=== PATIENT | female | born 1970 | race Caucasian/White ===

== ENCOUNTER 2020-08-15 02:05 | Outpatient (CLI) | payer OTHER, SELFPAY ==
[2020-08-15 17:59] LABS: SARS-CoV-2 RNA PCR Negative
== END 2020-08-15 02:06 | disposition home or self-care (01) ==
LOC: ANHCOVIDDT 02:06
PROVIDERS: PCP Family Medicine; Visit Provider Internal Medicine Critical Care Medicine
DX: Z01.812 Encounter for preprocedural laboratory examination (principal); Z20.828 Contact with and (suspected) exposure to other viral communicable diseases
CPT/HCPCS: 87635; C9803; U0003

== ENCOUNTER 2020-08-18 09:25 | Outpatient (CLI) | payer OTHER, SELFPAY ==
--- NOTE | 2020-09-01 22:05 | SLEEP_ITS ---
CPAP TITRATION DATE OF STUDY: 08/18/2020 ORDERING PHYSICIAN: Snehal Kong M.D. REASON FOR THIS STUDY: Severe obstructive sleep apnea on a home sleep test. HISTORY: This patient is a 49-year-old female, 66 inches tall, weighing 194 pounds with a body mass index of 31.3. Neck circumference is 15 inches. On June 21, 2020, she had an [facility] home sleep test with an AHI of 42. The majority of the events 52% or 58 apneas were obstructive and 42% or 47 apneas were central. She presented to the sleep lab for a titration. The lowest saturation on the home sleep test was 88%, there was snoring noted, but no time was spent below 88%. Her sleep-related complaints include waking up feeling tired, even after 10 hours of sleep. She wakes up in the morning with severe headaches. Her snoring is so loud that it bothers those around her. She frequently awakens from sleep feeling short of breath and occasionally awakens from sleep with heartburn. She has difficulty falling asleep and she wakes up throughout the night. It is difficult for her to wake in the morning. She occasionally sweats excessively at night and occasionally notices her heart pounding or beating irregularly at night. She frequently falls asleep during the day, occasionally involuntarily, never while driving. She does not have loss of muscle tone with strong emotion. She does have daytime difficulties due to excessive sleepiness, works as a physical therapist. She never has the feeling of paralysis on waking or falling asleep. She occasionally has vivid dreamlike scenes upon awakening or falling asleep. She is never afraid to go to sleep. She occasionally has nightmares, frequently remembers her dreams. She rarely has racing thoughts. She rarely feels sad or depressed. She occasionally has anxiety. She constantly has muscular tension. She occasionally notices parts of her body jerking and she occasionally kicks at night. She rarely has crawly achy feelings in her legs and rarely has leg pain at night. She occasionally has morning jaw pain. She constantly grinds her teeth during sleep and constantly is bothered by pain during the day. She frequently is awakened by pain at night. She constantly wakes up feeling stiff in the morning with sore achy muscles and pain in the neck and spine. She has nightmares, fatigues, and takes antacids regularly. Normal bedtime is 10:00 p.m., falling asleep within 15-30 minutes, waking 1-3 times at night, staying awake anywhere from 15 minutes to 3 hours. While awake, she will go to the bathroom or read. She awakens after an estimated 9-10 hours of sleep at night. On the weekends, she goes to bed a little later and wakes up a little later. She does take naps. A short nap is not refreshing. She is drowsy in the morning for 3 hours or longer. MEDICAL COMORBIDITIES: 1. Migraine headaches. 2. Depression. 3. Asthma. 4. GERD. 5. Hypertension. 6. Insomnia. MEDICATIONS: 1. Nexium 20 mg a day. 2. Loratadine 10 mg a day. 3. Vitamin D3 of 125 mcg a day. 4. Magnesium 500 mg a day. 5. Citalopram 40 mg a day. 6. Quinapril 20 mg a day. 7. Advil PM 2 tablets at bedtime. HABITS: Never smoked tobacco. Caffeine, 1 or 2 per day. Alcohol 1 per day. No recreational drugs. DESCRIPTION OF THE STUDY: On the Neely Sleepiness Scale, her score is 13. This was conducted as an attended CPAP titration in the lab using the [employer] multiple channel system including EOG, EEG, submental EMG, EKG, nasal and oral airflow using thermistors and nasal pressure sensors, chest and abdominal belts, body position data and pulse oximetry. This study was scored using [facility] guidelines. The duration of the study was 505.5 minutes. Sleep time was 4-0.6 minutes.
== END 2020-08-18 09:26 | disposition home or self-care (01) ==
PROVIDERS: PCP Family Medicine; Visit Provider Family Medicine
DX: G47.33 Obstructive sleep apnea (adult) (pediatric) (principal)
CPT/HCPCS: 95811

== ENCOUNTER 2020-10-07 13:45 | Outpatient (CLI) | payer OTHER, SELFPAY ==
--- NOTE | ~2020-10-07 | CT_ITS ---
EXAMINATION: CT abdomen pelvis wo con EXAM DATE: 10/07/2020 14:12 INDICATION: M54.5 - Low back pain . Abdominal bulge and pain for 3-4 weeks. TECHNIQUE: Spiral CT of the abdomen and pelvis was performed without contrast. Axial, coronal and sag ittal images were reviewed. The dose-length product (DLP) for this examination was 859.61 mGy-cm. T he exposure was tailored according to patient size (auto mA exposure control), and iterative reconstr uction (ASIR) was used as additional dose reduction technique. There is no prior study for compariso n. FINDINGS: No abdominal wall hernia. There is no nephrolithiasis or hydronephrosis. There is IUD whi ch appears to be centrally located within the endometrium, expected position. The bladder is unremar kable. The liver, spleen, adrenal glands and pancreas are unremarkable. There are cholecystectomy c lips. There is no retroperitoneal or pelvic lymphadenopathy. The appendix is normal. The stomach and small bowel are unremarkable. There is expected amount of c olonic stool. There is mild to moderate sigmoid predominant colonic diverticulosis. There is no lalo cent inflammatory change to suggest diverticulitis. No free intraperitoneal gas. The heart is norm al in size. There are no pericardial or pleural effusions. The lung bases are unremarkable. There are no osteoblastic or osteolytic lesions identified. IMPRESSION: 1. No nephrolithiasis, hydronephrosis or acute intra-abdominal findings. 2. Mild to moderate colonic diverticulosis. Reviewed, dictated and finalized at location B. ING OFFICER
== END 2020-10-07 13:46 | disposition home or self-care (01) ==
PROVIDERS: PCP Family Medicine; Visit Provider Physician Assistant
DX: R10.11 Right upper quadrant pain (principal); M54.5 Low back pain; Z90.49 Acquired absence of other specified parts of digestive tract; Z97.5 Presence of (intrauterine) contraceptive device; K57.30 Diverticulosis of large intestine without perforation or abscess without bleeding
CPT/HCPCS: 74176

== ENCOUNTER → 2022-04-04 11:24 | Outpatient (CLI) | payer OTHER, SELFPAY ==
--- NOTE | ~2022-04-04 | XR_ITS ---
EXAMINATION: XR chest 2V 04/04/2022 12:26 INDICATION: Cough PROCEDURE: 2 view chest COMPARISON: 10/22/2013 FINDINGS: The lungs are clear. The cardiomediastinal silhouette is within normal limits. There are no pleural effusions. There is no pneumothorax suspected. IMPRESSION: 1: NO ACUTE CARDIOPULMONARY DISEASE. Reviewed, dictated and finalized at location A.
== END ==
PROVIDERS: PCP Family Medicine; Visit Provider Physician Assistant
DX: R05.9 Cough, unspecified (principal)
CPT/HCPCS: 71046